=== PATIENT | male | born 1960 | race Caucasian/White ===

== ENCOUNTER 2022-02-25 21:00 | Emergency (ER) | payer OTHER ==
[~2022-02-25] VITALS: Ht 177.8 cm; Wt 102.1 kg
[2022-02-25 22:43] VITALS: BP 147/79
== END 2022-02-25 22:54 | disposition home or self-care (01) ==
LOC: EDH 21:00
DX: I10 Essential (primary) hypertension (principal); E11.9 Type 2 diabetes mellitus without complications
CPT/HCPCS: 99281

== ENCOUNTER → 2024-08-30 | Outpatient (CLI) | payer OTHER ==
[~2024-08-30] MED LIST: IOHEXOL 350 MG/ML 100ML INFUS..BTL IV ONE
--- NOTE | 2024-08-31 10:15 | HMCIMG ---
EXAM: CT Cardiac Angiogram. CLINICAL HISTORY: Chest pain. TECHNIQUE: Thin collimated axial CT cardiac angiogram images were obtained. A CT scan is done according to ALARA (As Low As Reasonably Achievable). COMPARISON: None provided. FINDINGS: Coronary CT Angiography: Dominance of the coronary artery system: Left. Left Main: Small peripheral eccentric calcified plaque in the left main artery without stenosis. The left main gives rise to the LAD and circumflex arteries. Left Anterior Descending Artery /T/ Diagonals: Small eccentric plaque in the proximal LAD at the level of the diagonal branch, causing mild narrowing of up to 25%. The rest of the proximal left anterior descending artery and the first diagonal branch have no stenosis or plaques. The mid and distal LAD appear normal. LAD is a type III vessel. Left Circumflex Artery /T/ Obtuse Marginals: The left circumflex artery and its obtuse marginal branches (OM1) have no stenosis or plaques. The neck circumflex artery gives rise to the posterior descending artery, and the posterolateral branches have no stenosis or plaques. The left circumflex artery is dominant. Right Coronary Artery: The right coronary artery is thin in caliber as it is the non-dominant artery. No plaques or stenosis. The acute marginal is normal in course and shows no plaques or stenosis. Cardiac Morphology:Both atria and ventricles are normal. The mitral valve leaflets are normal. The pericardium is normal, and there is no pericardial effusion. The aortic valve is tricuspid. The visualized thoracic aorta is normal in course and caliber. Extracardiac findings:The visualised pulmonary arteries appear normal in caliber. The visualised lung parenchyma is unremarkable. There is fatty infiltration of the liver. IMPRESSION: Mild coronary artery disease as described. CADRADS 1. Left Dominant Circulation. Fatty liver. /[place]
== END | disposition home or self-care (01) ==
LOC: RAH 09:30
PROVIDERS: ATTEND Student in an Organized Health Care Education/Training Program
DX: I25.10 Atherosclerotic heart disease of native coronary artery without angina pectoris (principal); R07.9 Chest pain, unspecified; K76.0 Fatty (change of) liver, not elsewhere classified
CPT/HCPCS: 75574; Q9967